=== PATIENT | male | born 1980 | race Caucasian/White ===

== ENCOUNTER 2018-10-04 10:03 | Emergency (ER) | payer OTHER ==
[~2018-10-04] VITALS: Ht 175.3 cm; Wt 65.8 kg
[2018-10-04 10:03] VITALS: BP_SYST 152
[2018-10-04 10:30] VITALS: BP_SYST 147
== END 2018-10-04 10:40 | disposition home or self-care (01) ==
LOC: SED 10:03
DX: G51.0 Bell's palsy (principal)
CPT/HCPCS: 99283